=== PATIENT | female | born 1970 | race Caucasian/White ===

== ENCOUNTER → 2018-10-17 12:12 | Outpatient (CLI) | payer BC, SELFPAY ==
--- NOTE | 2018-10-17 12:22 | RAD_ITS ---
STUDY: X-RAY - LEFT HAND REASON FOR EXAM: Female, 48 years old. Pain TECHNIQUE: 3 view(s) of the hand. COMPARISON: None. FINDINGS: Normal radiocarpal articulation. Normal distal radioulnar joint. Normal visualized carpal bones. Normal carpal articulations Normal carpometacarpal articulation of the thumb. Normal second through fifth carpometacarpal joints. Normal metacarpi. Normal metacarpophalangeal joint of the thumb. Normal interphalangeal joint of the thumb. Normal proximal and distal phalanges of the thumb. Normal metacarpophalangeal joints of the second through fifth fingers. 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 Normal phalanges of the second through fifth fingers. The soft tissue structures are unremarkable. 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 Electronically Signed: Perfecto Sanford MD at 18:24 EDT Tel , Service support ,
--- NOTE | 2018-10-17 12:22 | RAD_ITS ---
STUDY: X-RAY - RIGHT HAND REASON FOR EXAM: Female, 48 years old. Pain TECHNIQUE: 3 view(s) of the hand. COMPARISON: None. FINDINGS: Normal radiocarpal articulation. Normal distal radioulnar joint. Normal visualized carpal bones. Normal carpal articulations Normal carpometacarpal articulation of the thumb. Normal second through fifth carpometacarpal joints. Normal metacarpi. Normal metacarpophalangeal joint of the thumb. Normal interphalangeal joint of the thumb. Normal proximal and distal phalanges of the thumb. Normal metacarpophalangeal joints of the second through fifth fingers. Normal proximal and distal interphalangeal joints of the second through fifth fingers. Normal phalanges of the second through fifth fingers. The soft tissue structures are unremarkable. RAD/Hand Min 3 Views IMPRESSION: Normal x-ray examination of the hand. Electronically Signed: Perfecto Sanford MD at 18:40 EDT Tel , Service support ,
--- NOTE | 2018-10-17 12:23 | RAD_ITS ---
STUDY: X-RAY - PELVIS AND LEFT HIP REASON FOR EXAM: Female, 48 years old. Pain. TECHNIQUE: 3 views of the pelvis and hip. COMPARISON: None. FINDINGS: There is a non-specific bowel gas pattern. Normal visualized soft tissue structures. Normal bilateral iliac wings, sacroiliac joints and visualized sacrum. Normal bilateral superior and inferior pubic rami. Normal pubic symphysis. Normal bilateral ischial tuberosities. Normal visualized femoral head. Normal acetabulum. Normal hip joint. RAD/HIP, UNI W/ Pelvis 2-3 Views IMPRESSION: Normal x-ray examination of the pelvis and hip. Electronically Signed: Tiago Dubois MD at 12:03 EDT Tel , Service support ,
== END ==
PROVIDERS: Family Provider Family Medicine; PCP Family Medicine; Referring Provider Nurse Practitioner; Visit Provider Nurse Practitioner
DX: M79.641 Pain in right hand (principal); M79.642 Pain in left hand; M25.552 Pain in left hip
CPT/HCPCS: 73130; 73502

== ENCOUNTER → 2019-02-23 15:44 | Outpatient (CLI) | payer BC, SELFPAY ==
--- NOTE | 2019-02-23 15:47 | BI_ITS ---
MAMMOGRAPHY - BILATERAL SCREENING 3-D TOMOSYNTHESIS REASON FOR EXAM: Female, 48 years old. Bilateral Screening 3-D tomosynthesis PERTINENT HISTORY: Aunt on paternal side with breast cancer.. TECHNIQUE: 2-D mammograms and 3-D Tomosynthesis of the breast (s) were performed. CAD was performed. COMPARISON: 08/11/2013, 06/02/2012. FINDINGS: The breast composition is heterogeneously dense that can obscure small breast masses. Scattered benign calcifications are seen. No dense spiculated masses or suspicious microcalcifications are identified. No architectural distortion is identified. There is no skin thickening or retraction. There has been no significant change since the prior study. BI/SCREEN MAMM (CAD) W/MILADIS BILAT IMPRESSION: No mammographic signs of malignancy. Routine yearly mammograms recommended. ASSESSMENT CATEGORY: BIRADS Category 2: Benign. A letter regarding these results will be sent to the patient by the facility within 30 days. FOLLOW UP RECOMMENDATION: Yearly follow up mammogram recommended. (A) Approximately 10% of breast cancers are not detected by mammography. A normal mammogram should not delay biopsy of a clinically suspicious abnormality. Electronically Signed: Boubacar Spence MD at 16:12 EDT Tel [phone], Service support ,
== END ==
PROVIDERS: Family Provider Family Medicine; PCP Family Medicine; Referring Provider Nurse Practitioner; Visit Provider Nurse Practitioner
DX: Z12.31 Encounter for screening mammogram for malignant neoplasm of breast (principal); Z80.3 Family history of malignant neoplasm of breast
CPT/HCPCS: 77063; 77067

== ENCOUNTER 2021-09-08 15:02 | Outpatient (CLI) | payer BC, SELFPAY ==
--- NOTE | 2021-09-08 15:06 | BI_ITS ---
MAMMOGRAPHY - BILATERAL SCREENING REASON FOR EXAM: Female, 51 years old. Routine annual screening examination. PERTINENT HISTORY: Aunt with breast cancer. TECHNIQUE: Digital bilateral breast miladis (3D mammographic acquisition) in the CC and MLO projections. 2-D mediolateral oblique (MLO) and craniocaudad (CC) views of both breasts were obtained. CAD: Full Field Digital Mammography with Computer Added Detection was performed. COMPARISON: Comparison is made with prior study 02/23/2019 and 08/11/2013. FINDINGS: Breast Composition: The breasts are heterogeneously dense, which may obscure small masses. 7.4 mm x 9.4 mm well-defined nodule in the deep central slightly lateral aspect of the left breast. Central calcifications are seen within. This most likely represents a small fibroadenoma. Stable benign-appearing bilateral axillary lymph nodes. No other significant abnormalities are identified. BI/SCRN MAMM (CAD)W/MILADIS BILAT IMPRESSION: 7.4 mm x 9.4 mm well-defined nodule in the deep central slightly lateral aspect of the right breast. This most likely represents a calcifying fibroadenoma. Correlation with ultrasound is recommended. ASSESSMENT CATEGORY: BIRADS Category 0: Incomplete. Need additional imaging evaluation. A letter regarding these results will be sent to the patient by the facility within 30 days. Approximately 10% of breast cancers are not detected by mammography. A normal mammogram should not delay biopsy of a clinically suspicious abnormality. [id number] Electronically Signed: Gómez Cisneros MD at 8:08 EST ,
== END 2021-09-08 23:59 | disposition home or self-care (01) ==
LOC: OPBI 15:04
PROVIDERS: PCP Family Medicine; Referring Provider Nurse Practitioner; Visit Provider Nurse Practitioner
DX: Z12.31 Encounter for screening mammogram for malignant neoplasm of breast (principal); Z80.3 Family history of malignant neoplasm of breast
CPT/HCPCS: 77063; 77067

== ENCOUNTER 2021-09-15 14:39 | Outpatient (CLI) | payer BC, SELFPAY ==
--- NOTE | 2021-09-15 15:04 | US_ITS ---
History: Left breast nodule Ultrasound of the left breast: Findings: 1.5 x 1.0 x 0.5 cm solid fairly well-defined nodular density within the left breast at the 5 o'clock position approximately 5 cm from the nipple. Recommend correlation with the prior mammogram. IMPRESSION: Solid left breast nodule which will need further follow-up. at 1638 Reported and signed by: Rafi Tai MD Electronically Signed: Rafi Tai MD at 16:36 EST , US/Breast Limited Unilateral
== END 2021-09-15 23:59 | disposition home or self-care (01) ==
LOC: OPUS 15:01
PROVIDERS: PCP Family Medicine; Referring Provider Nurse Practitioner; Visit Provider Nurse Practitioner
DX: N63.20 Unspecified lump in the left breast, unspecified quadrant (principal)
CPT/HCPCS: 76642

== ENCOUNTER 2021-12-31 14:59 | Emergency (ER) | payer BC, SELFPAY ==
[2021-12-31 15:00] VITALS: BP 118/78; PULSE 94; RESP 16; TEMP 36.7; O2SAT 100; BMI 21.5
[2021-12-31] MEDS: DiphenhydrAMINE 50 MG/ML Syringe IV (15:18)
[2021-12-31] MEDS: MethylPREDNISolone 125 MG/2 ML Vial IV (15:19)
[2021-12-31] MEDS: Epi Pen (EQUIV) 0.3 MG Syringe IM (15:22)
[2021-12-31] MEDS: Famotidine 200 MG/20 ML MDV 20 MG in 0.9% Normal Saline (Pres. free 8 ML 300 MG IV (15:30)
[2021-12-31 15:41] LABS: Color, Urine Amber (Yellow); Glucose, Dipstick Normal (Normal); Ketone-Dipstick Negative (Negative); Leukocyte Esterase-Dipstick Negative /ul (Negative); Nitrite-Dipstick Positive (Negative); Occult Blood-Urine 25 /ul (Negative); Protein-Dipstick 30 mg/dl (Negative); Specific Gravity, Urine 1.025 (1.002-1.030); Urine Clarity Clear (Clear); Urine Urobilinogen 8 mg/dl (Normal)
[2021-12-31 15:43] LABS: Urine Bilirubin Dipstick 6 mg/dL (Negative)
[2021-12-31 16:00] LABS: White Blood Cells 0-5 SEEN /hpf (0-5)
[2021-12-31 16:01] LABS: Bacteria 1+ /hpf (None Seen); Calcium Oxalate Crystals Ur 4+ /hpf (<or=2+); Squamous Epithelial Cells - UA 5-10 SEEN /hpf (5-10)
[2021-12-31 16:02] LABS: Mucous, Urine 1+ /hpf (<or=2+); Red Blood Cells-Urine 0 SEEN /hpf (0-5)
[2021-12-31 16:15] VITALS: BP 130/75; PULSE 92; RESP 18; O2SAT 98
[2021-12-31 17:00] VITALS: BP 119/69; PULSE 92; RESP 16; O2SAT 95
--- NOTE | 2021-12-31 17:06 | EDS_ITS ---
HPI History of Present Illness Chief Complaint: Allergic Reaction Informant: patient Narrative Narrative: Patient presents concerned allergic reaction to Bactrim. Noticed some urinary urgency and pressure she had leftover Bactrim from a previous event she took 1 around noon. An hour later noticed swelling to the eye. Her last prescription she only had redness to her eye. There is been flushing throughout her body and she reports feels like throat is swelling during my exam. No change in soap or detergent. No history of similar events in the past. PFSH PFS Medical History Anxiety Home Medications epinephrine 0.3 mg/0.3 mL injection, auto-injector (EpiPen 2-Case) 0.3 mg (0.3 mL) IM .once PRN anaphylaxis #2 ea 12/31/21 [Rx Last Taken Unknown] famotidine 20 mg tablet (Pepcid) 20 mg PO BID #10 tabs 12/31/21 [Rx Last Taken Unknown] nitrofurantoin monohydrate/macrocrystals 100 mg capsule (Macrobid) 100 mg PO Q12H 5 days #10 caps 12/31/21 [Rx Last Taken Unknown] prednisone 20 mg tablet 60 mg PO DAILY #12 tabs 12/31/21 [Rx Last Taken Unknown] Allergy/AdvReac Type Severity Reaction Status Date / Time sulfamethoxazole Allergy Anaphylaxis Verified 12/31/21 15:33 [From Bactrim] trimethoprim [From Bactrim] Allergy Anaphylaxis Verified 12/31/21 15:33 codeine AdvReac Other Verified 12/31/21 15:02 Social History Smoking Status: Never smoker ROS [facility] ED Constitutional Constitutional ED: Denies chills, fever(s) or sweats Eyes Eyes: Denies change in vision ENT ENT ED: Reports other Details: Throat swelling, facial swelling ; Denies dysphagia or sore throat Cardiovascular Cardiovascular: Denies chest pain, leg edema, palpitations or racing heartbeat Respiratory/Chest Respiratory/Chest: Denies cough, dyspnea or dyspnea on exertion Gastrointestinal Gastrointestinal: Denies abdominal pain, diarrhea, nausea or vomiting Genitourinary Genitourinary ED: Denies dysuria, hematuria or urinary frequency Musculoskeletal Musculoskeletal: Denies back pain, extremity pain or neck pain Integumentary Denies rash or wounds Neurologic Neurologic: Denies headache(s), paresthesias or weakness EXAM Physical Exam Const Vital Signs: 12/31/21 15:00 12/31/21 16:15 12/31/21 17:00 Temperature 98.0 F Temperature Source Temporal Pulse Rate 94 92 92 Respiratory Rate 16 18 16 Blood Pressure 118/78 130/75 H 119/69 Blood Pressure Mean 91 93 85 Pulse Ox 100 98 95 Oxygen Delivery Method Room Air Room Air Room Air 12/31/21 18:18 12/31/21 19:13 Temperature Temperature Source Pulse Rate 91 71 Respiratory Rate 14 18 Blood Pressure 112/60 115/72 Blood Pressure Mean 77 Pulse Ox 95 98 Oxygen Delivery Method Room Air Positive well nourished and well developed General Appearance ED: well developed and NAD HEENT Reports moist mucous membranes HEENT Narrative: swelling around left eye, slight injected sclera bilaterally. No lip or tongue swelling, airway patent, no trismus or stridor. normocephalic and atraumatic Eyes PERRL, EOMs intact bilaterally and conjunctivae normal General Eye ED: Yes normal appearance of both eyes Neck no lymphadenopathy and supple General: Negative for tenderness Chest Wall Chest: Negative for tenderness Resp normal respiratory effort and normal air movement Effort and Inspection: symmetric chest movement; Negative for respiratory distress Cardio regular rate, regular rhythm and no murmurs Peripheral Pulses: pulses 2+ throughout GI normal to inspection, nondistended, normoactive bowel sounds and non-tender Palpation: Negative for guarding or rebound tenderness present Back/Spine no CVA tenderness and no thoracic nor lumbar tenderness Extremity normal to inspection General Extremety ED: Negative for edema or tenderness General Extremity: Negative for edema Neuro oriented x3 and no sensory deficits noted Sensorium / Orientation: awake and alert Skin no rashes or lesions noted and no wounds Skin Narrative: Diffuse flushing of skin. MDM MDM MDM Narrative Medical decision making narrative: Patient presenting with anaphylaxis secondary to Bactrim. Epinephrine, Solu- Medrol, Pepcid, Benadryl given. She was monitored multiple reevaluations clinically stable and improved. Urine obtained positive for infection. She has had multiple urine infections most recent a month ago. I sent for culture. She is started on Macrobid for 5 days. She will follow-up with her PCP. Prescriptions for epinephrine pen, prednisone and Pepcid along with Macrobid was sent to the pharmacy. Lab Data Attestation: I reviewed the patient's lab results. Labs: Laboratory Results - last 24 hr 12/31/21 15:27 Urine Color Priya Urine Clarity Clear Urine pH 5.0 Ur Specific [place] 1.025 Urine Protein 30 H Urine Glucose (UA) Normal Urine Ketones Negative Urine Occult Blood 25 H Urine Nitrite Positive H Urine Bilirubin 6 H Urine Urobilinogen 8 H Ur Leukocyte Esterase Negative Urine RBC 0 SEEN Urine WBC 0-5 SEEN Ur Squamous Epith Cells 5-10 SEEN Calcium Oxalate Crystal 4+ Urine Bacteria 1+ Urine Mucus 1+ Discharge Plan Triage Chief Complaint: Allergic Reaction ED Provider: Catalino Marinelli Dx/Rx/DC Orders Clinical Impression: Acute anaphylaxis, UTI (urinary tract infection) Prescriptions: New epinephrine [EpiPen 2-Case] 0.3 mg/0.3 mL auto-injector 0.3 mg IM .once PRN (Reason: anaphylaxis) Qty: 2 0RF Rx Instructions: repeat in 10 minutes if needed. for 2 doses famotidine [Pepcid] 20 mg tablet 20 mg PO BID Qty: 10 0RF prednisone 20 mg tablet 60 mg PO DAILY Qty: 12 0RF Rx Instructions: next dose 01/01/22 nitrofurantoin monohyd/m-cryst [Macrobid] 100 mg capsule 100 mg PO Q12H 5 Days Qty: 10 0RF Rx Instructions: must administer with a meal/food Primary Care Provider: Nhi Tinajero Referrals: Nhi Tinajero DO [Primary Care Provider] - 3-5 Days Activity Restrictions/Additional Instructions: Urine with infection. Culture sent. Take antibiotic as prescribed. Take prednisone and Pepcid as prescribed. Benadryl 25 to 50 mg every 6 hours as needed. Follow-up with your doctor. Disposition Disposition: Home, Self Care Discharge Date/Time: 12/31/21 19:14
[2021-12-31] MEDS: Nitrofurantoin Macrocrystals 100 MG Capsule PO (17:15)
[2021-12-31 18:18] VITALS: BP 112/60; PULSE 91; RESP 14; O2SAT 95
[2021-12-31 19:13] VITALS: BP 115/72; PULSE 71; RESP 18; O2SAT 98
== END 2021-12-31 19:14 | disposition home or self-care (01) ==
PROVIDERS: Emergency Provider Emergency Medicine; PCP Internal Medicine; Visit Provider Emergency Medicine
DX: N39.0 Urinary tract infection, site not specified (principal); T78.2XXA Anaphylactic shock, unspecified, initial encounter; F41.9 Anxiety disorder, unspecified
CPT/HCPCS: 81001; 87086; 87088; 96374; 96375; 99283; A4216; J3490

== ENCOUNTER → 2022-01-12 | Outpatient (CLI) | payer BC, SELFPAY ==
[2022-01-12 17:34] LABS: Absolute Lymphocyte Count 1.63 X10^3/uL (0.83-4.51); Basophil# 0.06 X10^3/uL; Basophil% 0.6 % (0-1); Eosinophil# 0.16 X10^3/uL; Eosinophils% 1.6 % (0-5); Hematocrit 44.2 % (37-47); Hemoglobin 14.3 g/dL (12.0-15.0); Lymphocyte # 1.63 X10^3/ul (0.83-4.51); Lymphocyte % 16.2 % (19-41); Mean Corp Hgb Conc 32.4 g/dL (32-36); Mean Corpuscular Hgb 30.2 pg (27.0-32.0); Mean Corpuscular Volume 93.2 fL (81-99); Mean Platelet Vol. 11.9 fl (6.2-12.0); Monocyte# 0.95 X10^3/uL; Monocyte% 9.4 % (0-10); NRBC Flagged by Analyzer 0 % (0-5); Neutrophil # 7.02 X10^3/uL (2.7-7.7); Neutrophil % 69.5 % (47-70); Platelet Count 186 K/mm3 (150-450); RBC Distribution Width CV 14.3 % (11.6-14.6); RBC Distribution Width SD 49.5 fl (35.1-43.9); Red Blood Count 4.74 M/mm3 (4.2-5.4); White Blood Count 10.1 K/mm3 (4.4-11.0)
[2022-01-12 17:49] LABS: Erythrocyte Sedimentation Rate 6 mm/hr (0-30)
[2022-01-12 18:03] LABS: AST(SGOT) 71 U/L (15-37); Alanine Aminotransfer ALT/SGPT 164 U/L (13-56); Albumin, Serum 3.5 g/dL (3.2-5.0); Alkaline Phosphatase 76 U/L (45-117); Anion Gap 5 (5-15); BUN 16 mg/dL (7-18); BUN/Creat Ratio 16.7 RATIO (10-20); CRP 3.98 mg/L (0.0-3.0); Calcium,Total 9.6 mg/dL (8.5-10.1); Chloride 104 mmol/L (98-107); Creatinine, Serum 0.96 mg/dL (0.55-1.02); EST Glomerular Filtration Rate 65 mL/min (>60); Est Glom Filt Rate - Afr Amer 78 mL/min (>60); Estradiol 39.1 pg/mL; Free T3 2.7 pg/mL (2.18-3.98); Globulin 3.5 g/dL (2.2-4.2); Glucose 76 mg/dL (74-106); Magnesium 2.2 mg/dL (1.6-2.6); Potassium 4.3 mmol/L (3.5-5.1); Rheumatoid Factor < 10.0 IU/mL (<15); Sodium Level 140 mmol/L (136-145); T4 Free Direct 1.11 ng/dL (0.76-1.46); Thyroid Stim Hormone (TSH) 0.55 uIU/mL (0.358-3.74)
[2022-01-13 08:58] LABS: Progesterone Level 3.73 ng/mL (See Comment); Vitamin B12 1248 pg/mL (211-911)
[2022-01-15 19:47] LABS: ANTINUCLEAR ANTIBODIES DIRECT Negative (Negative)
[2022-01-17 01:06] LABS: DHEA Sulfate 35.9 ug/dL (41.2-243.7); Testosterone Free 0.3 pg/mL (0.0-4.2)
[2022-01-18 17:13] LABS: CCP IgG Antibodies < 1 units (0-19); Thyroid Peroxidase AB < 8 IU/mL (0-34)
== END | disposition home or self-care (01) ==
LOC: MTLAB 15:17
PROVIDERS: PCP Internal Medicine; Referring Provider Internal Medicine; Visit Provider Internal Medicine
DX: E34.9 Endocrine disorder, unspecified (principal); R79.89 Other specified abnormal findings of blood chemistry; E55.9 Vitamin D deficiency, unspecified; R53.83 Other fatigue; M25.50 Pain in unspecified joint
CPT/HCPCS: 36415; 80053; 82306; 82607; 82627; 82670; 83735; 84144; 84402; 84439; 84443; 84481; 85025; 85652; 86038; 86140; 86200; 86376; 86431; 82626

== ENCOUNTER → 2022-01-26 | Outpatient (CLI) | payer BC, SELFPAY ==
--- NOTE | 2022-01-26 14:08 | CT_ITS ---
STUDY: CT ABDOMEN AND PELVIS WITHOUT CONTRAST REASON FOR EXAM: Female, 51 years old. RECURRENT UTI RADIATION DOSAGE (If Supplied By Facility): CTDIvol = ( 6.14 ) mGy, DLP = ( 294.57 ) mGycm TECHNIQUE: Transaxial images were obtained from the dome of the diaphragm to the symphysis pubis without oral contrast, and without intravenous contrast. Sagittal and coronal images were reconstructed. Individualized dose optimization techniques were used for this CT. COMPARISON: None. FINDINGS: The visualized lung bases are unremarkable. The visualized portions of the heart are within normal limits. 7.7 mm cyst in the dome of the right lobe of the liver. There is a 3.9 cm x 3.5 cm hypodense mass in the midportion of the right lobe of the liver. A neoplastic process should be ruled out. The gallbladder is contracted. Normal spleen. Normal pancreas. Normal bilateral adrenal glands. There is a 3.9 cm x 3.9 cm cyst in the upper lateral aspect of the right kidney. There is a 7.9 mm x 2.9 mm calculus in the lower pole calyx of the left kidney. Normal visualized stomach. Normal small intestine. Normal colon. The appendix is visualized and appears normal. Normal abdominal aorta. Normal inferior vena cava. Normal retroperitoneum. Normal urinary bladder. There is a 5.8 mm round calcification in the left hemipelvis. This does not lie within the ureter. This may represent focal calcification in the left side of the uterus. There is a small umbilical hernia containing fat. Disc space narrowing and disc degeneration at the L5-S1 level. CT/Abdomen/Pelvis without Cont IMPRESSION: 3.9 cm x 3.5 cm hypodense mass in the midportion of the right lobe of the liver. Correlation with enhanced CT scan or ultrasound of the liver recommended for further evaluation. Right renal cyst. Nonobstructive calculus in the lower pole calyx of the left kidney. Electronically Signed: Gómez Cisneros MD at 14:34 EDT ,
== END | disposition home or self-care (01) ==
PROVIDERS: PCP Internal Medicine; Visit Provider Internal Medicine
DX: N39.0 Urinary tract infection, site not specified (principal)
CPT/HCPCS: 74176

== ENCOUNTER → 2022-02-05 | Outpatient (CLI) | payer BC, SELFPAY ==
--- NOTE | 2022-02-05 17:48 | CT_ITS ---
EXAM: CT ABDOMEN AND PELVIS WITH INTRAVENOUS CONTRAST CLINICAL INDICATION: LIVER MASS TECHNIQUE: Helically acquired images were obtained of the abdomen and pelvis with intravenous contrast. This CT exam was performed using one or more of the following dose reduction techniques: automated exposure control, adjustment of the mA and/or kV according to patient size, and/or use of iterative reconstruction technique. This report was created using [employer] report generation technology. CONTRAST: 100 cc of Isovue 300 IV and Redicat oral contrast. RADIATION DOSE: CTDIvol = 10.18 mGy, DLP = 506.56 mGy-cm. COMPARISON: Noncontrast CT scan of the abdomen 01/26/2022 at 2:14 PM. FINDINGS: LOWER THORAX: Unremarkable. Lung bases are clear. No cardiomegaly. No significant pericardial effusion. ABDOMEN: LIVER: Low-density mass measuring up to 4.4 cm in diameter and the right lobe of the liver that demonstrates slight puddling enhancement superiorly and appears to be supplied by a branch of the portal vein. GALLBLADDER AND BILE DUCTS: Unremarkable. No calcified gallstones. No gallbladder distention or wall edema. No intra- or extrahepatic biliary ductal dilation. PANCREAS: Unremarkable. No focal cystic or solid mass. SPLEEN: Unremarkable. Normal size without focal cystic or solid mass. ADRENALS: Unremarkable. No nodules. KIDNEYS AND URETERS: Cyst measuring 3.7 cm right kidney. No follow-up imaging required. Small nonobstructing stone left kidney. Normal renal size and position. STOMACH AND BOWEL: Unremarkable. No stomach or bowel distention. No focal inflammatory change. PELVIS: APPENDIX: No evidence of acute appendicitis. BLADDER: Unremarkable. REPRODUCTIVE: Unremarkable as visualized. No mass. ABDOMEN and PELVIS: INTRAPERITONEAL SPACE: Unremarkable. No ascites or other fluid collection. No free air. BONES/JOINTS: Unremarkable. No suspicious lytic or blastic abnormality. SOFT TISSUES: Unremarkable. No discrete abdominal or pelvic wall hernia. VASCULATURE: See above. LYMPH NODES: Unremarkable. No enlarged lymph nodes. CT/Abdomen/Pelvis WITH Contrast IMPRESSION: Low-density mass measuring up to 4.4 cm in diameter and the right lobe of the liver that demonstrates slight puddling enhancement superiorly and appears to be supplied by a branch of the portal vein. Findings are compatible with a hemangioma. Electronically Signed: Abdulaziz Morrison MD at 6:40 EDT ,
== END | disposition home or self-care (01) ==
LOC: CT 17:44
PROVIDERS: PCP Internal Medicine; Visit Provider Internal Medicine
DX: R16.0 Hepatomegaly, not elsewhere classified (principal)
CPT/HCPCS: 74177; Q9967

== ENCOUNTER 2022-03-01 12:23 | Day surgery (SDC) | payer BC, SELFPAY ==
[2022-03-01] VITALS (7 sets, daily range): BP systolic 90–117; BP diastolic 65–88; PULSE 73–82; RESP 16; TEMP 36.1–37.4; O2SAT 94–100; BMI 22.4
[2022-03-01] MEDS: Lactated Ringers 1,000 ML 15 ML IV (13:22)
[2022-03-01] MEDS: Cefazolin 2 GM in 0.9% Normal Saline 100 ML IV (14:24)
--- NOTE | 2022-03-01 15:28 | DCINST_ITS ---
Discharge Instructions Diet Discharge Diet: No restrictions Activity Discharge Activity: Return to Normal Activity Dressing / Incision Call your doctor if you observe: Fever of 101 or Higher, Inability to urinate and Inability to have a bowel movement Follow Up Care Please Follow Up With: Daniela Yeh MD When: Call for appointment to be seen in the office with a KUB in 2 to 3 weeks Test Results: Test results from this visit will be discussed in further detail at your follow- up appointment, if applicable. Discharge Plan Admission Attending Provider: Daniela Yeh Primary Care Provider: Nhi Tinajero Discharge Orders/Prescriptions Prescriptions: New ondansetron HCl [ondansetron HCl] 8 mg tablet 8 mg PO Q8H PRN PRN (Reason: Nausea) 7 Days Qty: 20 0RF oxycodone-acetaminophen [oxycodone-acetaminophen] 5-325 mg tablet 2 tab PO Q8H PRN PRN (Reason: Pain) 7 Days Qty: 20 0RF cephalexin [cephalexin] 500 mg capsule 500 mg PO Q12 3 Days Qty: 6 0RF Continued epinephrine [EpiPen 2-Case] 0.3 mg/0.3 mL auto-injector 0.3 mg IM .once PRN (Reason: anaphylaxis) Qty: 2 0RF Rx Instructions: repeat in 10 minutes if needed. 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
--- NOTE | 2022-03-01 15:31 | PCM.OPRPT ---
Report of Operation Date of Procedure: 03/01/22 Pre-Operative Diagnosis: Left renal calculus, urinary tract infection Post-Operative Diagnosis: Same, vaginal atrophy Surgery/Procedure Performed:: Left renal extracorporal shockwave lithotripsy, pelvic examination under anesthesia, cystoscopy Surgeon: Daniela Yeh Type of Anesthesia: General Specimen's removed: None Description of Procedure: The patient is a 51-year-old female who was diagnosed with a large left renal calculus and urinary tract infections. She now presents for surgical intervention with shockwave lithotripsy and evaluation with cystoscopy and pelvic exam. Informed consent was obtained. The patient was taken to the operating room and placed on the operating room table. Anesthesia monitored the head, neck, airway, IV access and vital signs throughout the case. Once anesthesia was appropriate ministered, the patient was positioned with the lithotripter. The stone in the left kidney was easily visualized and 3000 shocks were applied to the stone which appeared to be well fragmented at the conclusion. She was then placed into dorsolithotomy position was prepped and draped in usual sterile fashion. Pelvic examination revealed a weak pelvic floor with essentially no perineal body support. There is vaginal atrophy with accentuated periurethral ducts. There is also evidence of trauma posteriorly at the area of the perineal body where there is a 1 cm tissue bridge that has developed. At this time the cystoscope was inserted through the urethra under direct visualization into the urinary bladder. The bladder mucosa was directly visualized revealing no evidence of mass, erythema, ulceration or foreign body. The ureteral orifices were located in the correct anatomic position in the area of the trigone. At this time the patient's bladder was emptied and the cystoscope was removed. The patient was then awakened and taken to the recovery room in good condition. There were no complications during this procedure. Grafts/Implants Used: None Complications None Admit VTE Documentation VTE Present on Admission: Yes VTE Mechan Device Prophylaxis: SCD's VTE Pharm Prophylaxis ordered?: No
== END 2022-03-01 17:00 | disposition home or self-care (01) ==
LOC: SDC 12:24 → AC 12:25
PROVIDERS: PCP Internal Medicine; Referring Provider Urology; Visit Provider Urology
PROC: (CPT 50590; principal; 2022-03-01 14:15)
DX: N20.0 Calculus of kidney (principal); N39.0 Urinary tract infection, site not specified; N95.2 Postmenopausal atrophic vaginitis; F41.9 Anxiety disorder, unspecified; F90.9 Attention-deficit hyperactivity disorder, unspecified type; Z87.442 Personal history of urinary calculi
CPT/HCPCS: 52000; 57410; 50590; J7120; J2405

== ENCOUNTER → 2022-03-19 | Outpatient (CLI) | payer BC, SELFPAY ==
--- NOTE | 2022-03-19 13:28 | RAD_ITS ---
EXAM: XR ABDOMEN, 1 VIEW CLINICAL INDICATION: Pain TECHNIQUE: Frontal supine view of the abdomen/pelvis. This report was created using [employer] report generation technology. COMPARISON: None. FINDINGS: LOWER THORAX: No acute pathology. GASTROINTESTINAL TRACT: Mild diffuse stool burden within the large bowel and rectum. ORGANS: No organomegaly. BONES/JOINTS: No acute abnormality. SOFT TISSUES: No pathological calcification. RAD/Abdomen Single View IMPRESSION: No acute findings. Electronically Signed: Rafi Tai MD at 9:35 EDT ,
== END | disposition home or self-care (01) ==
LOC: MTRAD 13:27
PROVIDERS: PCP Internal Medicine; Referring Provider Urology; Visit Provider Urology
DX: N20.0 Calculus of kidney (principal); N39.0 Urinary tract infection, site not specified
CPT/HCPCS: 74018

== ENCOUNTER 2022-04-20 13:00 | Outpatient (RCR) | payer BC, SELFPAY ==
--- NOTE | 2022-04-10 13:45 | HP.PTEVAL_ITS ---
Patient's Visit Information ASHLEE VIZCAINO is a 51 year old F referred to Physical Therapy by Dr. Daniela Yeh MD with a diagnosis of WEAK PELVIC FLOOR, OVERACTIVE BLADDER AND DYSPAREUNIA. Date of Evaluation: 04/06/22 Physical Therapist: Christine Seymour, PT, Cert MDT - Visit Plan Frequency: 1-2x /Week Duration: 8-12 VISITS Plan: MANUAL PF THERAPY FOR STRENGTHENING, LENGTHENING/RELAXATION AND ENDURANCE TRAINING. CONSIDER INTERNAL OR EXTERNAL PF BIOFEEDBACK WITH EQUIPMENT. TRAINING IN COORDINATION OF PELVIC FLOOR MUSCULATURE WITH CORE (TRANSVERSE ABDOMINUS) STRENGTHENING. TRAINING IN ABDOMINAL CAVITY PRESSURE MGMT WITH ADL'S TO DECREASE ANY URINARY LEAKING. CORE STRENGTHENING. BLAYNE LE ROM/STRETCHING/STRENGTHENING. - Subjective Work/Leisure: [employer] ABOUT 30 HOURS A WEEK. Present symptoms: PATIENT REPORTS SHE CAN NOT STOP HER URINE STREAM. MILD INTERMITTENT LBP. SHE ALSO HAS PRESSURE IN HER LOWER ABDOMEN ESPECIALLY AFTER WORKING ALL DAY - WORKS LONG HOURS. C/O FREQUENT URINATION BUT BETTER SINCE LITHOTRIPSY PROCEEDURE IN FEBRUARY. NO PELVIC PAIN EXCEPT DURING INTERCOURSE - PAIN WITH INTERCOURSE IS RARE. Present since: 29 YEARS. Pain Scale: WORST 5/10 (JUST WITH INTERCOURSE), LEAST 0/10. Commenced as a result of: VERY DIFFICULT CHILDBIRTH 29 YEARS AGO. Worse: WORKING LONG HOURS ON HER FEET. Better: LYING DOWN WITH LEGS UP. 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 Disturbed sleep: GETTING UP TO URINATE 1-2 TIMES PER NIGHT. Previous history/Previous treatment: NO PRIOR PELVIC FLOOR TREATMENT. MANAGES LBP WITH CHIROPRACTIC AND MUSCLE RELAXERS. RARELY USES MUSCLE RELAXERS - ABOUT ONCE EVERY 2-3 MONTHS. Coughing/sneezing/straining: PATIENT DENIES URINE LEAKING. Bowel Dysfunction: DENIES BOWEL INCONTINENCE. Unexplained weight loss: NO. PMH/Recent major surgery: 03/01/22 L RENAL EXTRACORPORAL SHOCKWAVE LITHOTRIPSY FOR RENAL CALCULUS - ALSO HAD PELVIC EXAM UNDER ANETHESIA AND CYSTOSCOPY AT THIS TIME. WITH FIRST SON 33 YEARS AGO. PATIENT HAS 2 SONS. SECOND DELIVERY 29 YEARS AGO WAS VAGINAL AND HE WAS STUCK - SHE REPORTS SHE WAS CUT 3 TIMES. HAD A PROCEEDURE TO BURN SOME OF THE SCAR TISSUE AND IT HELPED BUT IT WAS ABOUT A YEAR UNTIL PATIENT WAS ABLE TO STAND ALL DAY FOR WORK. - Objective Sitting/Standing Posture: FAIR. NO RELEVENT LATERAL SHIFT. Active Correction of posture: NE. ABLE TO FULLY CORRECT WITH CUEING. Other Observations: INDEP GAIT AND TRANSFERS. Sensory deficit: BLAYNE LE LIGHT TOUCH SENSATION IS GROSSLY INTACT AND SYMMETRICAL. ROM deficit: BLAYNE HS, GASTROC SOLEUS, BLAYNE HIP IR'S AND BLAYNE HIP ADD TIGHTNESS. Motor deficit: BLAYNE LE'S 5/5 WITH MMT'ING. Dural Signs: NEGATIVE BLAYNE LE'S. Lumbar mvmt loss: flex - MIN. ext - MIN. R SG - MOD. L SG - MIN. Core strength: FAIR. Palpation: WITH MANUAL INTERNAL PELVIC FLOOR TESTING PATIENT HAS 2/5 PF STRENGTH WITH A 4 SEC ENDURANCE. TREATMENT: INSTRUCTED PATIENT IN KEGEL QUICK FLICK HOME EX X 5-8 REPS 3 TIMES A DAY. WRITTEN HEP PROVIDED. ALSO INSTRUCTED PATIENT TO AVOID DOING KEGELS DURING micturition. - Goals Goal 1:: PATIENT WILL DEMONSTRATE 10 CONSISTENT AND CONSECUTIVE 10 SECOND PELVIC FLOOR MUSCLE CONTRACTIONS TO DEMONSTRATE IMPROVED PELVIC FLOOR ENDURANCE. Goal Time Frame: 6-8 Weeks Goal 2:: PATIENT WILL BE ABLE TO HAVE SEXUAL RELATIONS WITH HER WITHOUT PAIN. Goal Time Frame: 6-8 Weeks Goal 3:: FLUID INTAKE OF ? BODY WEIGHT IN OUNCES PER DAY WITH 2/3 BEING WATER. Goal Time Frame: 2-4 Weeks Goal 4:: PATIENT WILL BE INDEP WITH A HEP/HOME INSTRUCTIONS FOR CONTINUED IMPROVEMENT ONCE FORMAL PHYSICAL THERAPY CONCLUDES Goal Time Frame: 6-8 Weeks - Anticipated Interventions Patient/Client Instruction: Educate patient on: Condition, Plan of Care, Risk Factors For the Purpose of:: To improve self management Therapeutic Exercise to Include: Strength training, Endurance training, Flexibilty training, Neuromotor development For the Purpose of:: To decrease pain, To increase ROM, To improve muscle performance and motor function, To increase tolerance to activity/condition/position, To improve ability of physical actions for home/community/work/leisure Thank you for the opportunity to evaluate your patient. For Medicare and Medicare HMO plans, please review the plan of care and approve it. It will need to be FAXED BACK to us at [phone] for Medicare purposes. For Medicare only, by signing this I certify the plan of care. Please let me know if there are questions or concerns regarding this plan of care. Physician Signature: Date:
--- NOTE | 2022-07-06 09:56 | HP.PT.NRP ---
ASHLEE VIZCAINO was seen in my office for initial evaluation on 04/06/22. The following Plan of Care was established for this patient: Initial Frequency: 1-2x /Week Initial Duration: 8-12 VISITS Patient/Client Instruction: Educate patient on: Condition, Plan of Care, Risk Factors For the Purpose of:: To improve self management Therapeutic Exercise to Include: Strength training, Endurance training, Flexibilty training, Neuromotor development For the Purpose of:: To decrease pain, To increase ROM, To improve muscle performance and motor function, To increase tolerance to activity/condition/position, To improve ability of physical actions for home/community/work/leisure This patient was last seen in our office 04/20/22. Pertinent comments regarding their Physical therapy will appear below: This patient has not returned to Physical Therapy and is appropriate to return to MD for further follow-up as needed. At this point I will be discontinuing this patient from physical therapy. I would be happy to see this patient again in the future if found appropriate by the physician. Thank you! Christine Seymour, PT, Cert MDT
== END 2022-04-20 19:00 | disposition home or self-care (01) ==
LOC: PT 13:00
PROVIDERS: PCP Internal Medicine; Referring Provider Urology; Visit Provider Urology
DX: N32.81 Overactive bladder (principal); N94.10 Unspecified dyspareunia
CPT/HCPCS: 97162; 97530

== ENCOUNTER → 2022-10-22 | Outpatient (CLI) | payer BC, SELFPAY ==
--- NOTE | 2022-10-22 13:40 | BI_ITS ---
MAMMOGRAPHY - BILATERAL SCREENING REASON FOR EXAM: Female, 52 years old. Routine annual screening examination. PERTINENT HISTORY: Aunt with breast cancer. TECHNIQUE: Digital bilateral breast miladis (3D mammographic acquisition) in the CC and MLO projections. 2-D mediolateral oblique (MLO) and craniocaudad (CC) views of both breasts were obtained. CAD: Full Field Digital Mammography with Computer Added Detection was performed. COMPARISON: Comparison is made with prior study of September 08, 2021 and February 23, 2019. FINDINGS: Breast Composition: The breasts are heterogeneously dense, which may obscure small masses. There are no dominant masses or suspicious calcifications. Stable 7.4 mm x 9.4 mm well-defined nodule in the deep central slightly lateral aspect of the left breast. Calcifications are seen within it suggestive of a calcified fibroadenoma. Stable small benign-appearing bilateral axillary lymph nodes. No other significant abnormalities are identified. There has been no significant change since the prior study. BI/SCRN MAMM (CAD)W/MILADIS BILAT IMPRESSION: Stable bilateral screening mammogram. Yearly follow-up mammogram recommended. (A) ASSESSMENT CATEGORY: BIRADS Category 2: Benign. A letter regarding these results will be sent to the patient by the facility within 30 days. Approximately 10% of breast cancers are not detected by mammography. A normal mammogram should not delay biopsy of a clinically suspicious abnormality. [id number] Electronically Signed: Gómez Cisneros MD at 14:47 EDT ,
== END | disposition home or self-care (01) ==
LOC: OPBI 13:38
PROVIDERS: PCP Internal Medicine; Referring Provider Internal Medicine; Visit Provider Internal Medicine
DX: Z12.31 Encounter for screening mammogram for malignant neoplasm of breast (principal); Z80.3 Family history of malignant neoplasm of breast
CPT/HCPCS: 77063; 77067

== ENCOUNTER → 2023-12-27 | Outpatient (CLI) | payer BC, SELFPAY ==
--- NOTE | 2023-12-27 12:22 | BI_ITS ---
MAMMOGRAPHY - BILATERAL SCREENING REASON FOR EXAM: Female, 53 years old. Routine annual screening examination. PERTINENT HISTORY: Aunt with breast cancer. TECHNIQUE: Digital bilateral breast miladis (3D mammographic acquisition) in the CC and MLO projections. 2-D mediolateral oblique (MLO) and craniocaudad (CC) views of both breasts were obtained. CAD: Full Field Digital Mammography with Computer Added Detection was performed. COMPARISON: Comparison is made with prior examination October 22, 2022 and September 08, 2021. FINDINGS: Breast Composition: The breasts are heterogeneously dense, which may obscure small masses. There are no dominant masses or suspicious calcifications. Stable 7.4 mm partially calcified nodule in the deep central slightly lateral aspect of the left breast. This most likely represents a calcified fibroadenoma. Stable benign-appearing bilateral axillary lymph nodes. No other significant abnormalities are identified. There has been no significant change since the prior study. BI/SCRN MAMM (CAD)W/MILADIS BILAT IMPRESSION: Stable bilateral screening mammogram. Yearly follow-up mammogram recommended. (A) ASSESSMENT CATEGORY: BIRADS Category 2: Benign. A letter regarding these results will be sent to the patient by the facility within 30 days. Approximately 10% of breast cancers are not detected by mammography. A normal mammogram should not delay biopsy of a clinically suspicious abnormality. [id number] Electronically Signed: Gómez Cisneros MD at 13:53 EDT ,
== END | disposition home or self-care (01) ==
LOC: OPBI 12:21
PROVIDERS: PCP Internal Medicine; Visit Provider Internal Medicine
DX: Z12.31 Encounter for screening mammogram for malignant neoplasm of breast (principal); Z80.3 Family history of malignant neoplasm of breast
CPT/HCPCS: 77063; 77067

== ENCOUNTER → 2025-03-26 | Outpatient (CLI) | payer BC, SELFPAY ==
--- NOTE | 2025-03-26 12:59 | RAD_ITS ---
PROCEDURE: ANKLE MIN 3 VIEWS 03/26/2025 REASON FOR EXAM: ANKLE INJUYR Recent injury. TECHNIQUE: Procedure Code: RADANK Modality: DX Procedure: ANKLE MIN 3 VIEWS Laterality: Right ankle. COMPARISON: None FINDINGS: Bones: No fracture. Joints: Normal alignment. Mortise appears intact. No effusion. Soft tissues: Lateral soft tissue swelling Other: RAD/Ankle min 3 Views IMPRESSION: Lateral soft tissue swelling. No fracture seen. Reading Location: [facility]
--- NOTE | 2025-03-26 12:59 | RAD_ITS ---
PROCEDURE: FOOT MIN 3 VIEWS 03/26/2025 REASON FOR EXAM: FOOT INJURY Lateral foot injury following twisting injury. TECHNIQUE: Procedure Code: RADFO Modality: DX Procedure: FOOT MIN 3 VIEWS Laterality: Right foot COMPARISON: None FINDINGS: Bones: No fracture is seen. Joints: Mild degree of joint space narrowing of the 1st metatarsophalangeal joint. Soft tissues: Mild dorsal soft tissue swelling Other: RAD/Foot min 3 Views IMPRESSION: No fracture seen. Mild degree of joint space narrowing of the 1st metatarsophalangeal joint. Mild soft tissue swelling. Reading Location: [facility]
== END | disposition home or self-care (01) ==
PROVIDERS: PCP Internal Medicine; Referring Provider Physician Assistant Surgical; Visit Provider Physician Assistant Surgical
DX: S99.929A Unspecified injury of unspecified foot, initial encounter (principal); S99.919A Unspecified injury of unspecified ankle, initial encounter
CPT/HCPCS: 73610; 73630